=== PATIENT | male | born 1945 | race Caucasian/White ===

== ENCOUNTER 2016-09-23 20:37 | Emergency (ER) | payer OTHER ==
[2016-09-23] MEDS ORDERED: APAP/HYDROCODONE 325/5 TAB PO ONE (21:13)
[2016-09-23] MEDS ORDERED: KETOROLAC TROMETHAMINE 30 MG/ML SOL IM ONE (21:13)
[2016-09-23] MEDS ORDERED: APAP/HYDROCODONE 325/5 TAB ONE (21:23)
[2016-09-23] MEDS ORDERED: KETOROLAC TROMETHAMINE 30 MG/ML SOL ONE (21:23)
[2016-09-23] MEDS ORDERED: CYCLOBENZAPRINE 10 MG TAB PO ONE (21:50)
[2016-09-23 21:59] VITALS: BP 159/96; PULSE 80; RESP 24; TEMP 97.8; O2SAT 96
[2016-09-23] MEDS ORDERED: CYCLOBENZAPRINE 10 MG TAB ONE (22:06)
== END 2016-09-23 22:08 | disposition home or self-care (01) | DRG 556 ==
LOC: ED 20:37
DX: M25.551 Pain in right hip (principal)
CPT/HCPCS: 73501; 96372; 99283; 99284; J1885

== ENCOUNTER 2017-10-13 10:29 | Emergency (ER) | payer OTHER ==
[2017-10-13 10:59] VITALS: BP 117/87; PULSE 68; RESP 20; TEMP 98.6; O2SAT 95
== END 2017-10-13 11:50 | disposition home or self-care (01) | DRG 563 ==
LOC: ED 10:29
DX: S63.602A Unspecified sprain of left thumb, initial encounter (principal)
CPT/HCPCS: 73140; 99282

== ENCOUNTER 2018-04-10 09:44 | Emergency (ER) | payer OTHER ==
[2018-04-10 09:57] VITALS: BP 155/97; PULSE 74; RESP 16; TEMP 97.6; O2SAT 98
== END 2018-04-10 11:02 | disposition home or self-care (01) | DRG 563 ==
LOC: ED 09:44
DX: S46.911A Strain of unspecified muscle, fascia and tendon at shoulder and upper arm level, right arm, initial encounter (principal); W00.9XXA Unspecified fall due to ice and snow, initial encounter; E11.9 Type 2 diabetes mellitus without complications
CPT/HCPCS: 73030; 99282; 99283

== ENCOUNTER 2018-08-10 10:57 | Emergency (ER) | payer OTHER, MEDICARE ==
[2018-08-10 11:15] VITALS: RESP 14; TEMP 98.4
[2018-08-10] MEDS ORDERED: LORAZEPAM 2 MG/ML SOL IM ONE (11:24)
[2018-08-10] MEDS ORDERED: LORAZEPAM 2 MG/ML SOL ONE (11:29)
[2018-08-10] MEDS ORDERED: TDAP VACCINE 0.5 ML SUS IM ONE ×2 (13:00→13:05)
[2018-08-10 13:29] VITALS: BP 135/75; PULSE 62; O2SAT 92
== END 2018-08-10 13:15 | disposition home or self-care (01) | DRG 552 ==
LOC: ED 10:57
DX: S33.5XXA Sprain of ligaments of lumbar spine, initial encounter (principal); E11.9 Type 2 diabetes mellitus without complications; I10 Essential (primary) hypertension; R26.81 Unsteadiness on feet
CPT/HCPCS: 72120; 90471; 90715; 96372; 99283; 99284; G0390; J2060